=== PATIENT | female | born 1955 | race Caucasian/White ===

== ENCOUNTER → 2022-10-07 | Outpatient (CLI) | payer MEDICARE | LOC: MRI 09:55 | PROVIDERS: ATTEND Family Medicine | DX: R20.2 Paresthesia of skin (principal); M54.10 Radiculopathy, site unspecified; M62.81 Muscle weakness (generalized) | CPT/HCPCS: 72148 ==

== ENCOUNTER → 2024-04-08 | Outpatient (REF) | payer MEDICARE | LOC: RAD 13:35 | PROVIDERS: ATTEND Family Medicine | DX: M47.812 Spondylosis without myelopathy or radiculopathy, cervical region (principal) | CPT/HCPCS: 72050 ==

== ENCOUNTER → 2024-05-18 | Outpatient (REF) | payer MEDICARE | LOC: MRI 08:49 | PROVIDERS: ATTEND Family Medicine | DX: M47.812 Spondylosis without myelopathy or radiculopathy, cervical region (principal) | CPT/HCPCS: 72141 ==

== ENCOUNTER → 2025-02-09 | Outpatient (RCR) | payer MEDICARE | LOC: PT 01-25 13:25 | PROVIDERS: ATTEND Neurological Surgery | DX: M50.920 Unspecified cervical disc disorder, mid-cervical region, unspecified level (principal) ==

== ENCOUNTER 2025-03-09 13:54 | Outpatient (RCR) | payer MEDICARE | END 2025-03-12 | LOC: PT 13:54 | PROVIDERS: ATTEND Neurological Surgery | DX: M50.920 Unspecified cervical disc disorder, mid-cervical region, unspecified level (principal) ==

== ENCOUNTER 2025-03-23 15:00 | Outpatient (RCR) | payer MEDICARE | END 2025-04-11 | LOC: PT 15:00 | PROVIDERS: ATTEND Neurological Surgery | DX: M50.820 Other cervical disc disorders, mid-cervical region, unspecified level (principal) ==